=== PATIENT | male | born 1970 | race African-American/Black ===

== ENCOUNTER 2016-12-07 10:53 | Emergency (ER) | payer OTHER ==
[~2016-12-07] VITALS: Ht 182.9 cm; Wt 95.3 kg
[~2016-12-07 10:53] MED LIST: AMLODIPINE BESY10 MG PO; AMLODIPINE BESYL5 MG PO; BP MED; IBUPROFEN 600600 M1 PO; NORVASC 5 MG TAB5 MG PO; NORVASC10 MG PO; NORVASC5 MG PO; PERCOCET 5-3251 EACH PO; PERCOCET 7.5-31 EACH PO; PREDNISONE50 MG PO; PROVENTIL HFA6.7 G1 INH; TUSSIONEX PENN473 ML PO; TYLENOL325 MG
[2016-12-07 11:18] LABS: HEMOGLOBIN 14.6 gm/dL (14.0-18.0); MCH 31.4 pg (26.0-34.0); MCHC 34.7 g/dL (28.0-37.0); MCV 90.5 fL (80.0-100.0); PLATELET COUNT 294 thou/uL (150-400); RBC 4.64 mil/uL (4.50-6.00); RDW 14.1 % (10.5-14.5); WBC 8.1 thou/uL (4.0-11.0)
[2016-12-07 11:21] LABS: MANUAL DIFF YES
[2016-12-07 11:27] LABS: CALCIUM 9.1 mg/dL (8.5-10.1); CREATININE 1.3 mg/dL (0.7-1.3)
[2016-12-07 11:33] LABS: URINE BILIRUBIN NEGATIVE (Negative); URINE BLOOD 3+ (Negative); URINE COLOR YELLOW; URINE GLUCOSE-RANDOM* NEGATIVE (Negative); URINE KETONES NEGATIVE (Negative); URINE LEUKOCYTES-REFLEX NEGATIVE (Negative); URINE PROTEIN (DIPSTICK) NEGATIVE (Negative)
[2016-12-07 11:44] LABS: SQUAMOUS 0-3 Few /LPF (0-3)
[2016-12-07 11:45] LABS: CASTS None Seen /LPF (None Seen); CRYSTALS None Seen /LPF (None Seen); URINE RBC 3-10 Few /HPF (0-2); URINE WBC-REFLEX 0-5 Rare /HPF (0-5)
[2016-12-07 11:48] LABS: ABSOLUTE NEUTROPHILS 4.7 thou/uL (1.4-8.2); TOTAL CELL COUNT 100
[2016-12-07 11:52] LABS: ANISOCYTOSIS SLIGHT
[2016-12-07] MEDS ORDERED: NORVASC10 MG PO (12:40)
[2016-12-07 12:48] VITALS: BP 164/107
== END 2016-12-07 12:40 | disposition home or self-care (01) ==
LOC: ER 10:53
PROVIDERS: Nurse Practitioner Family
DX: N20.0 Calculus of kidney (principal); I10 Essential (primary) hypertension; J45.909 Unspecified asthma, uncomplicated; F17.210 Nicotine dependence, cigarettes, uncomplicated

== ENCOUNTER 2018-06-19 16:13 | Emergency (ER) | payer OTHER ==
[~2018-06-19] VITALS: Ht 182.9 cm; Wt 99.8 kg
[2018-06-19] MEDS ORDERED: PREDNISONE 20 M20 MG PO (17:36)
[2018-06-19] MEDS ORDERED: TRAMADOL 50 MG50 MG PO (17:36)
[2018-06-19 18:16] VITALS: BP 154/105
== END 2018-06-19 18:08 | disposition home or self-care (01) ==
LOC: ER 16:13
DX: M77.01 Medial epicondylitis, right elbow (principal); I10 Essential (primary) hypertension; J45.909 Unspecified asthma, uncomplicated

== ENCOUNTER 2018-10-22 15:40 | Emergency (ER) | payer OTHER ==
[~2018-10-22] VITALS: Ht 182.9 cm; Wt 102.1 kg
[~2018-10-22 15:40] MED LIST changes: +PREDNISONE 20 M20 MG PO; +TRAMADOL 50 MG50 MG PO
[2018-10-22 16:04] LABS: HEMOGLOBIN 14.5 gm/dL (14.0-18.0); MCH 31.2 pg (26.0-34.0); MCHC 34.4 g/dL (28.0-37.0); MCV 90.6 fL (80.0-100.0); RBC 4.64 mil/uL (4.50-6.00); RDW 14.3 % (10.5-14.5); WBC 7.8 thou/uL (4.0-11.0)
[2018-10-22 16:12] LABS: ANION GAP 11 mmol/L (7-16); BUN 14 mg/dL (7-18); CALCIUM 9.4 mg/dL (8.5-10.1); CHLORIDE 106 mmol/L (98-107); CO2 24 mmol/L (21-32); CREATININE 1.4 mg/dL (0.7-1.3); GLUCOSE 125 mg/dL (74-106); POTASSIUM 3.6 mmol/L (3.5-5.1); SODIUM 141 mmol/L (136-145)
[2018-10-22 16:22] LABS: ALBUMIN 3.8 g/dL (3.4-5.0); SGOT 13 U/L (15-37); SGPT 26 U/L (30-65); TOTAL BILIRUBIN 0.4 mg/dL (<0.1-1.0); TOTAL PROTEIN 7.5 g/dL (6.4-8.2); TROPONIN-I <0.06 ng/mL (<0.06)
[2018-10-22 16:56] VITALS: BP 176/95
[2018-10-22] MEDS ORDERED: NORVASC10 MG PO (17:03)
[2018-10-22] MEDS ORDERED: NAPROSYN500 MG PO (17:03)
--- NOTE | 2018-10-23 09:14 | EKG ---
[place] [address] 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1970 Requested By: Soniya Espana Order Number: [id number] MD: Osmel Verdugo Measurements Intervals [place] Rate: 87 P: 38 VA: 186 QRS: -41 QRSD: 98 T: 41 QT: 391 QTc: 471 Interpretive Statements Sinus rhythm Left anterior fascicular block Nonspecific T wave abnormality Compared to ECG 11/24/2015 11:49:10 no significant change was found Electronically Signed On 10-23-2018 9:14:21 CDT by Osmel Verdugo [email or web address] ��������������������������������������������� <ELECTRONICALLY SIGNED> ���������������������������������������� By: Osmel Verdugo MD, [facility] ��������������������������������������������� 10/23/18 0914 [id number] 155 Osmel Verdugo MD, [facility] /EPI
== END 2018-10-22 16:55 | disposition home or self-care (01) ==
LOC: ER 15:40
PROVIDERS: Physician Assistant
DX: I10 Essential (primary) hypertension (principal); R07.89 Other chest pain; Z91.14 Patient's other noncompliance with medication regimen; J45.909 Unspecified asthma, uncomplicated; F17.210 Nicotine dependence, cigarettes, uncomplicated

== ENCOUNTER 2019-04-12 10:52 | Emergency (ER) | payer OTHER ==
[~2019-04-12] VITALS: Ht 182.9 cm; Wt 108.9 kg
[~2019-04-12 10:52] MED LIST changes: +NAPROSYN500 MG PO
[2019-04-12] MEDS ORDERED: KEFLEX500 M1 PO (12:43)
[2019-04-12] MEDS ORDERED: ERYTHROMYCIN E3.5 G3 OPHTHALMIC (12:43)
[2019-04-12 13:06] VITALS: BP 166/115
== END 2019-04-12 13:34 | disposition home or self-care (01) ==
LOC: ER 10:52
DX: S20.411A Abrasion of right back wall of thorax, initial encounter (principal); S40.812A Abrasion of left upper arm, initial encounter; S20.312A Abrasion of left front wall of thorax, initial encounter; H11.32 Conjunctival hemorrhage, left eye; I10 Essential (primary) hypertension; J45.909 Unspecified asthma, uncomplicated; F17.210 Nicotine dependence, cigarettes, uncomplicated; Z86.011 Personal history of benign neoplasm of the brain; Y00.XXXA Assault by blunt object, initial encounter; Y92.89 Other specified places as the place of occurrence of the external cause; Y93.89 Activity, other specified; Y99.8 Other external cause status

== ENCOUNTER 2020-04-03 14:00 | Emergency (ER) | payer OTHER ==
[~2020-04-03] VITALS: Ht 182.9 cm; Wt 102.1 kg
[~2020-04-03 14:00] MED LIST changes: +ERYTHROMYCIN E3.5 G3 OPHTHALMIC; +KEFLEX500 M1 PO
[2020-04-03 15:10] LABS: ABSOLUTE NEUTROPHILS 3.2 thou/uL (1.4-8.2); BASOPHILS 0.7 % (0.0-2.0); EOSINOPHILS 1.8 % (0.0-3.0); HEMATOCRIT 40.2 % (42.0-52.0); HEMOGLOBIN 13.7 gm/dL (14.0-18.0); LYMPHOCYTES 41.6 % (24.0-44.0); MCH 31.4 pg (26.0-34.0); MCHC 34.2 g/dL (28.0-37.0); MCV 91.9 fL (80.0-100.0); MONOCYTES 9.7 % (1.0-8.0); PLATELET COUNT 275 thou/uL (150-400); POLYS 46.2 % (36.0-66.0); RBC 4.37 mil/uL (4.50-6.00); RDW 13.9 % (10.5-14.5); WBC 6.9 thou/uL (4.0-11.0)
[2020-04-03 15:25] LABS: CALCIUM 9.2 mg/dL (8.5-10.1); CREATININE 1.4 mg/dL (0.7-1.3); POTASSIUM 4.1 mmol/L (3.5-5.1)
[2020-04-03] MEDS ORDERED: NORVASC5 M1 PO (15:49)
[2020-04-03 16:05] VITALS: BP 156/100
== END 2020-04-03 16:20 | disposition home or self-care (01) ==
LOC: ER 14:00
PROVIDERS: Emergency Medicine
DX: I10 Essential (primary) hypertension (principal); R51.9 Headache, unspecified; R42 Dizziness and giddiness; J45.909 Unspecified asthma, uncomplicated; F17.210 Nicotine dependence, cigarettes, uncomplicated

== ENCOUNTER 2020-12-07 09:42 | Emergency (ER) | payer OTHER ==
[~2020-12-07] VITALS: Ht 175.3 cm; Wt 102.1 kg
[~2020-12-07 09:42] MED LIST changes: +NORVASC5 M1 PO
[2020-12-07 10:56] LABS: BASOPHILS 0.4 % (0.0-2.0); EOSINOPHILS 0.9 % (0.0-3.0); HEMOGLOBIN 13.6 gm/dL (14.0-18.0); MCH 31.5 pg (26.0-34.0); MCHC 34.1 g/dL (28.0-37.0); MCV 92.4 fL (80.0-100.0); MONOCYTES 8.6 % (1.0-8.0); PLATELET COUNT 305 thou/uL (150-400); POLYS 75.1 % (36.0-66.0); RBC 4.33 mil/uL (4.50-6.00); RDW 14.1 % (10.5-14.5); WBC 14.7 thou/uL (4.0-11.0)
[2020-12-07 10:59] LABS: ANION GAP 11 mmol/L (7-16); BUN 15 mg/dL (7-18); CALCIUM 8.9 mg/dL (8.5-10.1); CHLORIDE 109 mmol/L (98-107); CO2 24 mmol/L (21-32); CREATININE 1.4 mg/dL (0.7-1.3); GLUCOSE 129 mg/dL (74-106); POTASSIUM 4.1 mmol/L (3.5-5.1); SODIUM 144 mmol/L (136-145)
[2020-12-07 11:09] LABS: ALBUMIN 3.6 g/dL (3.4-5.0); SGOT 56 U/L (15-37); SGPT 53 U/L (30-65); TOTAL BILIRUBIN 0.3 mg/dL (0.2-1.0); TOTAL PROTEIN 7.3 g/dL (6.4-8.2); TROPONIN-I <0.06 ng/mL (<0.06)
--- NOTE | 2020-12-07 12:21 | EKG ---
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1970 Requested By: Yash Sanders Order Number: [id number] MD: Jarod Juan Measurements Intervals [place] Rate: 102 P: 60 HI: 183 QRS: -22 QRSD: 98 T: 44 QT: 354 QTc: 462 Interpretive Statements Sinus tachycardia Probable left atrial enlargement Borderline left axis deviation Compared to ECG 10/22/2018 15:51:12 Sinus rhythm no longer present Left anterior fascicular block no longer present T-wave abnormality no longer present Electronically Signed On 12-07-2020 12:20:50 CDT by Jarod Juan [email or web address] <ELECTRONICALLY SIGNED> By: Jarod Juan MD, [facility] 12/07/20 1220 0947 Jarod Juan MD, FAC /EPI
[2020-12-07] MEDS ORDERED: NEBULIZER MISCELL (12:37)
[2020-12-07] MEDS ORDERED: IPRAT-ALBUT 0.5-3 ML INH (12:37)
[2020-12-07] MEDS ORDERED: PREDNISONE50 MG PO (12:37)
[2020-12-07] MEDS ORDERED: PROAIR HFA8.5 GM INH (12:37)
[2020-12-07 13:00] VITALS: BP 162/88
== END 2020-12-07 13:00 | disposition home or self-care (01) ==
LOC: ER 09:42
PROVIDERS: Emergency Medicine
DX: J45.909 Unspecified asthma, uncomplicated (principal); Z20.822 Contact with and (suspected) exposure to COVID-19; I10 Essential (primary) hypertension; F17.210 Nicotine dependence, cigarettes, uncomplicated